=== PATIENT | male | born 1965 | race African-American/Black ===

== ENCOUNTER 2024-01-08 09:02 | Emergency (ER) | payer BC, MEDICAID ==
[~2024-01-08] VITALS: Ht 170.2 cm; Wt 89.5 kg
[2024-01-08 09:10] VITALS: O2SAT 100
[2024-01-08] MEDS: KETOROLAC 60MG/2ML VIAL IM ONE (10:28)
[2024-01-08] MEDS: METHOCARBAMOL 750MG TABLET PO STA (10:28)
[2024-01-08] MEDS ORDERED: METH-653 MT (13:16)
[2024-01-08] MEDS ORDERED: NAPR-681 MT (13:16)
[2024-01-08 13:23] VITALS: BP 125/84; PULSE 71; RESP 18; TEMP 98
[2024-01-08] MEDS ORDERED: METHOCARBAMOL 750MG TABLET PO SCH ×2 (14:00)
== END 2024-01-08 13:50 | disposition home or self-care (01) ==
LOC: ER 09:02
DX: M54.9 Dorsalgia, unspecified (principal); I10 Essential (primary) hypertension; Z91.041 Radiographic dye allergy status; Z98.890 Other specified postprocedural states
CPT/HCPCS: 99283; 73630; 96372; J1885